=== PATIENT | female | born 1995 | race Caucasian/White ===

== ENCOUNTER 2017-04-14 19:18 | Emergency (ER) | payer OTHER ==
[2017-04-14] MEDS ORDERED: methylPREDNISolone 125 MG* 2 ML VIAL IM ONE (19:51)
[2017-04-14 19:54] VITALS: BP 132/68
--- NOTE | 2017-04-14 20:03 | UC ---
Skin Complaint HPI - HPI Summary HPI Summary: BEGAN TAKING [facility] THREE DAYS AGO, FOR WISDOM TOOTH REMOVAL. TODAY NOTICED RED ITCHY RASH FOLLOWING DISTRIBUTION AROUND PANTY-LINE, INCLUDING BUTTOCKS, GROIN AND (PROXIMAL) THIGHS. NO KNOWN CHANGE IN DETERGENT. NO THROAT TIGHTNESS. MILD ITCHINESS OF RASH. NO BLISTERING. NO DISCHARGE. - History of Current Complaint Chief Complaint: UCRash Time Seen by Provider: 04/14/17 19:26 Stated Complaint: RASH Hx Obtained From: Patient Hx Last Menstrual Period: 03/30/17 Onset/Duration: Sudden Onset, Lasting Hours, Still Present Skin Exposure Onset/Duration: Hours Ago Onset Severity: Mild Current Severity: Mild Location: Discrete Character: Pruritus, Redness Aggravating: Nothing Alleviating: Nothing Associated Signs & Symptoms: Positive: Rash. Negative: Nausea, Vomiting, Numbness, Fever, Chills, Syncope, Drainage, Tenderness, Red Streaks Related History: Recent change in medication, Possible Reaction to: Environmental Exposure - Allergy/Home Medications Allergies/Adverse Reactions: Allergies Allergy/AdvReac Type Severity Reaction Status Date / Time No Known Allergies Allergy Verified 04/14/17 19:27 Home Medications: Home Medications Oral Contraeptive 1 tab PO DAILY 04/14/17 [History] Review of Systems Constitutional: Negative Skin: Rash Eyes: Negative ENT: Negative Respiratory: Negative Cardiovascular: Negative Gastrointestinal: Negative Genitourinary: Negative Motor: Negative Neurovascular: Negative Musculoskeletal: Negative Neurological: Negative Psychological: Negative All Other Systems Reviewed And Are Negative: Yes PMH/Surg Hx/FS Hx/Imm Hx Previously Healthy: Yes - Surgical History Surgical History: Yes Surgery Procedure, Year, and Place: Tonsillectomy, 2002, [place]. WISDOM TEETH EXTRACTIONS-04/06/17 - Family History Known Family History: Positive: Respiratory Disease Family History: no family history of kidney, cardiac, hypertensoion issues - Social History Occupation: Employed Full-time Lives: With Family Alcohol Use: Occasionally Substance Use Type: None Smoking Status (MU): Never Smoked Tobacco Physical Exam Triage Information Reviewed: Yes Appearance: Well-Appearing, No Pain Distress, Well-Nourished Vital Signs: Initial Vital Signs Temp 98.5 F 04/14/17 19:30 Pulse 96 04/14/17 19:30 Resp 18 04/14/17 19:30 BP 132/68 04/14/17 19:30 Pulse Ox 99 04/14/17 19:30 Vital Signs Reviewed: Yes Eye Exam: Normal ENT Exam: Normal Dental Exam: Normal Neck exam: Normal Neck: Positive: Supple Respiratory Exam: Normal Respiratory: Positive: Chest non-tender, Lungs clear, Normal breath sounds, No respiratory distress, No accessory muscle use Cardiovascular Exam: Normal Cardiovascular: Positive: RRR, No Murmur, Pulses Normal Abdominal Exam: Normal Musculoskeletal Exam: Normal Musculoskeletal: Positive: Strength Intact, ROM Intact Neurological Exam: Normal Psychological Exam: Normal Skin: Positive: rashes - LIGHT MACULAR ERYTHEMATOUS MILDLY PRURITIC RASH DISTRIBUTED AROUND ASPECT OF PANTIES. Course/Dx - Course Course Of Treatment: PRECAUTIONARY CHANGE OF ORAL ANTIBIOTIC - Differential Diagnoses - Skin Complaint Differential Diagnoses: Allergic Reaction, Anaphylaxis, Cellulitis, Contact Dermatitis, Drug Rash, Local Allergic Reaction, Medication; Adverse Reaction, Poison [place], Poison [place], Urticaria - Diagnoses Provider Diagnoses: CONTACT DERMATITIS Discharge - Discharge Plan Condition: Stable Disposition: HOME Prescriptions: Amoxicillin/Clavulanate TAB* [Augmentin TAB 875*] 875 mg PO BID #14 tab Patient Education Materials: Contact Dermatitis (ED), Antibiotic Medication Allergy (ED) Referrals: Jameson Damon MD [Medical Doctor] - MARICARMEN Bowden [Primary Care Provider] - Images Front/Back of Body, Lg ([place]): 1 - LIGHT MACULAR ERYTHEMATOUS MILDLY PRURITIC RASH DISTRIBUTED AROUND ASPECT OF PANTIES. 2 - LIGHT MACULAR ERYTHEMATOUS MILDLY PRURITIC RASH DISTRIBUTED AROUND ASPECT OF PANTIES.
== END 2017-04-14 20:24 | disposition home or self-care (01) ==
LOC: UCCORT 19:18
DX: L25.9 Unspecified contact dermatitis, unspecified cause (principal)
CPT/HCPCS: 96372; 99212; G0463; J2930

== ENCOUNTER 2017-09-04 12:56 | Emergency (ER) | payer OTHER ==
[2017-09-04 13:54] VITALS: BP 126/110
--- NOTE | 2017-09-04 14:12 | UC ---
Skin Complaint HPI - HPI Summary HPI Summary: c/o boil in inner groin area for few days now - tender to touch, feels like something inside but nothing comes out when she tries to pop at it. denies fever or chills. - History of Current Complaint Chief Complaint: UCSkin Time Seen by Provider: 09/04/17 14:05 Stated Complaint: PERSONAL Hx Obtained From: Patient Hx Last Menstrual Period: 08/10/17 ?: No Onset/Duration: Sudden Onset Skin Exposure Onset/Duration: Days Ago Timing: Constant Onset Severity: Moderate Current Severity: Mild Location: Other - inner groin - left side Aggravating Factor(s): Clothing Alleviating Factor(s): Nothing Associated Signs & Symptoms: Positive: Negative - Allergy/Home Medications Allergies/Adverse Reactions: Allergies Allergy/AdvReac Type Severity Reaction Status Date / Time Clindamycin Allergy Rash Verified 09/04/17 13:48 Review of Systems Skin: Other - boil on inner left groin Eyes: Negative ENT: Negative Respiratory: Negative Cardiovascular: Negative Gastrointestinal: Negative Genitourinary: Negative Musculoskeletal: Negative Is Patient Immunocompromised?: No All Other Systems Reviewed And Are Negative: Yes PMH/Surg Hx/FS Hx/Imm Hx Previously Healthy: Yes - Surgical History Surgical History: Yes Surgery Procedure, Year, and Place: Tonsillectomy, 2002, [place] - Family History Known Family History: Positive: Respiratory Disease Family History: no family history of kidney, cardiac, hypertensoion issues - Social History Alcohol Use: Occasionally Substance Use Type: None Smoking Status (MU): Never Smoked Tobacco Physical Exam Triage Information Reviewed: Yes Appearance: Well-Appearing Vital Signs: Initial Vital Signs Temp 98.4 F 09/04/17 13:48 Pulse 88 09/04/17 13:48 Resp 20 09/04/17 13:48 BP 126/110 09/04/17 13:48 Vital Signs Reviewed: Yes Respiratory Exam: Normal Skin Exam: Other - boil present on inner left thigh tender to touch no drainage present but fluid inside of boil at this time. Course/Dx - Course Course Of Treatment: take abx with food to reduce GI upset. increase fluid intake while on abx to prevent dehydration. warm compress to area prn to help bring boil to a head. f/u pcp in 1 week is symptoms not resolving - Diagnoses Provider Diagnoses: boil Discharge - Discharge Plan Condition: Good Disposition: HOME Prescriptions: Amoxicillin PO (*) [Amoxicillin 875 MG (*)] 875 mg PO BID 10 Days #5 tab Patient Education Materials: Furunculosis and Carbunculosis (ED) Referrals: MARICARMEN Bowden [Primary Care Provider] - 1 Week
== END 2017-09-04 14:17 | disposition home or self-care (01) ==
LOC: UCCORT 12:56
DX: L02.426 Furuncle of left lower limb (principal)
CPT/HCPCS: 99212; G0463

== ENCOUNTER 2017-09-13 08:03 | Emergency (ER) | payer OTHER ==
[2017-09-13 08:17] VITALS: BP 108/78
--- NOTE | 2017-09-13 08:26 | UC ---
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 in her left shoulder radiating to elbow, - History of Current Complaint Chief Complaint: UCUpperExtremity Stated Complaint: WC-LFT ARM INJURY Time Seen by Provider: 09/13/17 08:18 Hx Obtained From: Patient Hx Last Menstrual Period: 09/10/17 ?: No Mechanism of Injury: moving a patient Onset/Duration: Days - 2, Traumatic, Still Present Severity Initially: Moderate Severity Currently: Moderate Location Of Pain: Is Discrete @ - becept tendon proximal long head of tendon tender Character: Aching Aggravating Factor(s): Movement Alleviating Factor(s): Rest - Allergies/Home Medications Allergies/Adverse Reactions: Allergies Allergy/AdvReac Type Severity Reaction Status Date / Time Clindamycin Allergy Rash Verified 09/13/17 08:17 PMH/Surg Hx/FS Hx/Imm Hx Previously Healthy: Yes - Surgical History Surgical History: Yes Surgery Procedure, Year, and Place: Tonsillectomy, 2002, [place]. wisdom teeth - Family History Known Family History: Positive: Respiratory Disease Family History: no family history of kidney, cardiac, hypertensoion issues - Social History Occupation: Employed Full-time Lives: With Family Alcohol Use: Rare Substance Use Type: None Smoking Status (MU): Never Smoked Tobacco Review of Systems Constitutional: Negative Skin: Negative Eyes: Negative ENT: Negative Respiratory: Negative Cardiovascular: Negative Gastrointestinal: Negative Genitourinary: Negative Motor: Negative Neurovascular: Negative Musculoskeletal: Negative, Myalgia - between left shoulder and elbow Neurological: Negative Psychological: Negative Is Patient Immunocompromised?: No All Other Systems Reviewed And Are Negative: Yes Physical Exam Triage Information Reviewed: Yes Appearance: Well-Appearing, No Pain Distress, Well-Nourished Vital Signs: Initial Vital Signs Temp 98 F 09/13/17 08:12 Pulse 74 09/13/17 08:12 Resp 14 09/13/17 08:12 BP 108/78 09/13/17 08:12 Pulse Ox 100 09/13/17 08:12 Vital Signs Reviewed: Yes Eye Exam: Normal Eyes: Positive: Conjunctiva Clear ENT Exam: Normal ENT: Positive: Normal ENT inspection, Hearing grossly normal. Negative: Nasal congestion, Trismus, Muffled voice, Hoarse voice Dental Exam: Normal Neck exam: Normal Neck: Positive: Supple, Nontender, No Lymphadenopathy Respiratory Exam: Normal Respiratory: Positive: Chest non-tender, Lungs clear, Normal breath sounds, No respiratory distress, No accessory muscle use Cardiovascular Exam: Normal Cardiovascular: Positive: RRR, No Murmur, Pulses Normal, Brisk Capillary Refill Musculoskeletal Exam: Normal Musculoskeletal: Positive: ROM Intact - passive, No Edema, Strength Limited @ - left shoulder pain, ROM Limited @ - active due to pain Neurological Exam: Normal Neurological: Positive: Alert, Muscle Tone Normal Psychological Exam: Normal Skin Exam: Normal Elbow Pain Course/Dx - Course Course Of Treatment: sling, naproxen, follow with orthopedic MD, rest ice/heat - Differential Dx/Diagnosis Provider Diagnoses: left shoulder bicept strain Discharge - Discharge Plan Condition: Stable Disposition: HOME Prescriptions: Naproxen [Naproxen EC 500 MG TAB] 500 mg PO BID #20 tab Patient Education Materials: Muscle Strain (ED), Heat Pack Application (ED) Forms: *Work Release Referrals: Aby Matta MD [Medical Doctor] - 4 Days
== END 2017-09-13 08:36 | disposition home or self-care (01) ==
LOC: UCCORT 08:03
DX: S46.812A Strain of other muscles, fascia and tendons at shoulder and upper arm level, left arm, initial encounter (principal); X58.XXXA Exposure to other specified factors, initial encounter; Y93.F9 Activity, other caregiving; Y92.239 Unspecified place in hospital as the place of occurrence of the external cause; Z88.3 Allergy status to other anti-infective agents
CPT/HCPCS: 99212; G0463

== ENCOUNTER 2017-10-08 10:08 | Emergency (ER) | payer OTHER ==
[2017-10-08 10:22] VITALS: BP 127/69
--- NOTE | 2017-10-08 10:33 | UC ---
Respiratory Complaint HPI - HPI Summary HPI Summary: cough x 1 days high fever, chills, sore throat, nasal congestion joint and body aches brother was dx with flu - History of Current Complaint Chief Complaint: UCRespiratory Stated Complaint: COUGH,BOGDAN Time Seen by Provider: 10/08/17 10:16 Hx Obtained From: Patient Hx Last Menstrual Period: 10/06/17 ?: No Onset/Duration: Sudden Onset, Lasting Days - 1, Still Present Timing: Constant Severity Initially: Moderate Severity Currently: Moderate Character: Cough: Nonproductive Aggravating Factors: Deep Breaths Alleviating Factors: Nothing Associated Signs And Symptoms: Positive: Fever, Chills, URI, Nasal Congestion. Negative: Wheezing, Hemoptysis, Dizziness, Calf Pain, Calf Swelling - Allergies/Home Medications Allergies/Adverse Reactions: Allergies Allergy/AdvReac Type Severity Reaction Status Date / Time Clindamycin Allergy Rash Verified 10/08/17 10:21 PMH/Surg Hx/FS Hx/Imm Hx Previously Healthy: Yes - Surgical History Surgical History: Yes Surgery Procedure, Year, and Place: Tonsillectomy, 2002, [place]. wisdom teeth - Family History Known Family History: Positive: Respiratory Disease Family History: no family history of kidney, cardiac, hypertensoion issues - Social History Alcohol Use: Occasionally Substance Use Type: None Smoking Status (MU): Never Smoked Tobacco Review of Systems Constitutional: Fever, Chills, Fatigue Skin: Negative Eyes: Negative ENT: Sore Throat, Nasal Discharge Respiratory: Cough Cardiovascular: Negative Gastrointestinal: Negative Is Patient Immunocompromised?: No All Other Systems Reviewed And Are Negative: Yes Physical Exam Triage Information Reviewed: Yes Appearance: Well-Appearing, No Pain Distress, Well-Nourished Vital Signs: Initial Vital Signs Temp 98.1 F 10/08/17 10:16 Pulse 98 10/08/17 10:16 Resp 16 10/08/17 10:16 BP 127/69 10/08/17 10:16 Pulse Ox 98 10/08/17 10:16 Vital Signs Reviewed: Yes Eyes: Positive: Conjunctiva Clear ENT: Positive: Normal ENT inspection, Hearing grossly normal, Pharyngeal erythema, Nasal drainage Neck: Positive: Supple, Nontender, No Lymphadenopathy Respiratory: Positive: Chest non-tender, Lungs clear, Normal breath sounds Cardiovascular: Positive: Tachycardia Abdominal Exam: Normal Abdomen Description: Positive: Nontender, Soft Bowel Sounds: Positive: Present Skin Exam: Normal UC Diagnostic Evaluation - Laboratory O2 Sat by Pulse Oximetry: 98 Respiratory Course/Dx - Differential Dx/Diagnosis Provider Diagnoses: viral illness Discharge - Discharge Plan Condition: Stable Disposition: HOME Prescriptions: Oseltamivir CAP* [Tamiflu CAP*] 75 mg PO BID #10 cap Patient Education Materials: Influenza (ED) Referrals: MARICARMEN Bowden [Primary Care Provider] - If Needed
== END 2017-10-08 10:37 | disposition home or self-care (01) ==
LOC: UCCORT 10:08
DX: B34.9 Viral infection, unspecified (principal); Z88.1 Allergy status to other antibiotic agents
CPT/HCPCS: 99212; G0463

== ENCOUNTER 2018-03-03 11:14 | Emergency (ER) | payer SELFPAY ==
[2018-03-03 11:48] VITALS: BP 119/58
[2018-03-03] MEDS ORDERED: Naproxen TAB* 250 MG PO ONE (12:23)
--- NOTE | 2018-03-03 12:27 | UC ---
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 Slight dysesth great toe. Pain diffuse lat foot, extending post ankle. [place] and heard a "opo" at the time of injury. No prox gagnon tenderness or other injury. No bruising yet. - History of Current Complaint Chief Complaint: UCLowerExtremity Stated Complaint: RT FOOT PAIN Time Seen by Provider: 03/03/18 12:13 Hx Obtained From: Patient Hx Last Menstrual Period: ~02/17/18 Pain Intensity: 7 - Allergies/Home Medications Allergies/Adverse Reactions: Allergies Allergy/AdvReac Type Severity Reaction Status Date / Time clindamycin Allergy Rash Verified 03/03/18 11:48 PMH/Surg Hx/FS Hx/Imm Hx Previously Healthy: Yes - Surgical History Surgical History: Yes Surgery Procedure, Year, and Place: [place] Teeth, 2016; Tonsillectomy, 2002, [place] - Family History Known Family History: Positive: Respiratory Disease Family History: no family history of kidney, cardiac, hypertensoion issues - Social History Alcohol Use: Occasionally Substance Use Type: None Smoking Status (MU): Never Smoked Tobacco Review of Systems Constitutional: Negative Skin: Other - see hpi Eyes: Negative ENT: Negative Respiratory: Negative Cardiovascular: Negative Gastrointestinal: Negative Genitourinary: Negative Motor: Other - see hpi Neurovascular: Other - see hpi Musculoskeletal: Arthralgia Neurological: Other - see hpi Psychological: Negative Is Patient Immunocompromised?: No All Other Systems Reviewed And Are Negative: Yes Physical Exam Triage Information Reviewed: Yes Appearance: Well-Appearing, Well-Nourished Vital Signs: Initial Vital Signs Temp 98.7 F 03/03/18 11:46 Pulse 86 03/03/18 11:46 Resp 16 03/03/18 11:46 BP 119/58 03/03/18 11:46 Pulse Ox 100 03/03/18 11:46 Vital Signs Reviewed: Yes Eye Exam: Normal - grossly ENT Exam: Normal - grossly normal Neck exam: Normal - no c/o's Respiratory Exam: Normal - no c/o no tachypnea, no dyspnea Cardiovascular Exam: Normal Abdominal Exam: Normal - nontender Musculoskeletal Exam: Other - Tender lateral foot diffuse, tenderness post lat mall. DP/PT palpable. CR good. + sens LT present x 5 toes. Subj dysesthetic great toe. Neurological Exam: Normal - grossly nonfocal, some dysesthesia great toe affected side Psychological Exam: Normal - conversing easily and appropriately Skin Exam: Normal - no visible or reported rash, non-diaphoretic. Lower Extremity Course/Dx - Course Course Of Treatment: Reviewed xray reports with Ms. Ponce. D/w Ms. Ponce coa / tx plan. Encourage offloading as much as possible. She works on her feet a lot, will benefit from orthopedic referral, especially if any worse or new problems. Questions as posed answered to the best of my ability. - Differential Dx/Diagnosis Provider Diagnoses: Acute foot sprain Discharge - Sign-Out/Discharge Documenting (check all that apply): Discharge/Admit/Transfer - Discharge Plan Condition: Stable Disposition: HOME Prescriptions: Naproxen [Naproxen 500 mg tab] 500 mg PO Q12H PRN #30 tablet.dr CARRILLO Reason: Pain Patient Education Materials: Foot Sprain (ED) Forms: *Work Release Referrals: MARICARMEN Bowden [Primary Care Provider] - Saida Delacruz MD [Medical Doctor] - Additional Instructions: Follow up with Dr. Delacruz (orthopedic surgeon) next week. Seek medical attention for worse or new problems in the meantime. Stay off your foot as much as possible. Elevate as much as possible. Seek medical attention for worse or new problems. Follow up with your primary care physician, per routine. - Billing Disposition and Condition Condition: STABLE Disposition: Home
--- NOTE | 2018-03-03 12:48 | RAD ---
HISTORY: rolled foot / ankle this am COMPARISONS: None VIEWS: 6, Frontal, lateral, and oblique views of the right ankle and right foot FINDINGS: BONE DENSITY: Normal. BONES: There is no displaced fracture. JOINTS: There is no arthropathy. ALIGNMENT: There is no dislocation. SOFT TISSUES: Unremarkable. OTHER FINDINGS: None. IMPRESSION: NO ACUTE OSSEOUS INJURY TO THE RIGHT ANKLE OR RIGHT FOOT. IF SYMPTOMS PERSIST, RECOMMEND REPEAT IMAGING.
== END 2018-03-03 13:26 | disposition home or self-care (01) ==
LOC: UCCORT 11:14
DX: S93.601A Unspecified sprain of right foot, initial encounter (principal); X50.0XXA Overexertion from strenuous movement or load, initial encounter; Y93.9 Activity, unspecified; Y92.9 Unspecified place or not applicable; Y99.9 Unspecified external cause status; Z88.1 Allergy status to other antibiotic agents
CPT/HCPCS: 99213; A9270-GY; G0463